=== PATIENT | female | born 1975 | race African-American/Black ===

== ENCOUNTER 2016-12-08 02:35 | Emergency (ER) | payer OTHER ==
[2016-12-08 02:46] VITALS: TEMP 98.2; BMI 23.6
--- NOTE | 2016-12-08 04:50 | PDOC ---
History of Present Illness - General History Source: Patient Exam Limitations: No Limitations - History of Present Illness Initial Comments: 12/08/16 04:53 The patient is a 41 year old female with significant past medical history of asthma and bronchitis who presents to the ED for 6 days of increased dyspnea. Patient reports her symptoms got acutely worse last night. She reports associated coughing, posttussive emesis, headache and some night sweats. She also has complaints of sore throat secondary to her cough. States using her albuterol with no improvement. The patient denies fever, chills, lightheadedness, chest pain, and palpitations. The patient denies abdominal pain, nausea, and diarrhea. Allergies: NKDA Social History: No alcohol, tobacco, or drug use reported. Past Surgical History: Laparoscopic appendectomy, Removal of fibroids and cysts (July 04, 2016) PCP: Dr. Mikaela Morales CORE BLOWER OPERATOR: Dr. Isadora Gallagher <Leonie Olivia - Last Filed: 12/08/16 04:55> - General History Source: Patient <Dashawn Edmonds - Last Filed: 12/08/16 19:42> - General Chief Complaint: Asthma Stated Complaint: ASTHMA/DIFFICULTY BREATHING Time Seen by Provider: 12/08/16 04:50 Past History <Leonie Olivia - Last Filed: 12/08/16 04:55> - Past Medical History Anemia: No Asthma: Yes Cancer: No Cardiac Disorders: No CVA: No COPD: No CHF: No Dementia: No Diabetes: No GI Disorders: No Disorders: No HTN: No Hypercholesterolemia: No Liver Disease: No Seizures: No Thyroid Disease: No - Surgical History Abdominal Surgery: Yes (FIBROIDS REMOVED) Appendectomy: Yes Cholecystectomy: No Orthopedic Surgery: No - Reproductive History (#): 0 Para: 0 - Immunization History Immunization Up to Date: Yes - Psycho/Social/Smoking Cessation Hx Anxiety: No Suicidal Ideation: No Smoking Status: No Smoking History: Never smoked Have you smoked in the past 12 months: No Number of Cigarettes Smoked Daily: 0 Hx Alcohol Use: No Drug/Substance Use Hx: No Substance Use Type: None Hx Substance Use Treatment: No <Dashawn Edmonds - Last Filed: 12/08/16 19:42> - Past Medical History Allergies/Adverse Reactions: Allergies Allergy/AdvReac Type Severity Reaction Status Date / Time castro flavor Allergy Verified 12/08/16 06:44 isabelle flavor Allergy Verified 12/08/16 06:44 Home Medications: Ambulatory Orders Albuterol Sulfate Inhaler - [Ventolin HFA Inhaler -] 1 - 2 inh PO Q4H PRN #1 inh 07/16/14 Ferrous Sulfate [Feosol] 325 mg PO DAILY PRN 01/18/16 Montelukast Na [Singulair -] 10 mg PO HS PRN 01/18/16 Tiotropium Drexel [Spiriva] 1 inh PO DAILY 01/18/16 Ibuprofen [Motrin -] 600 mg PO QID PRN #28 tablet 08/05/16 Dulera 200 Mcg/5 Mcg Inhaler 1 puff IN DAILY 12/08/16 Prednisone [Deltasone -] 40 mg PO DAILY #8 tablet 12/08/16 Review of Systems - Review of Systems Able to Perform ROS?: Yes Comments:: 12/08/16 04:53 CONSTITUTIONAL: +night sweats Absent: fever, no chills, no fatigue EYES: Absent: visual changes ENT: +sore throat Absent: ear pain CARDIOVASCULAR: Absent: chest pain, no palpitations RESPIRATORY: +cough, SOB GI: +posttussive emesis Absent: abdominal pain, no nausea, no constipation, no diarrhea GENITOURINARY: Absent: dysuria, no frequency, no hematuria MUSCULOSKELETAL: Absent: back pain, no arthralgia, no myalgia SKIN: Absent: rash NEURO: +headache <BharrFrancisco albertta - Last Filed: 12/08/16 04:55> *Physical Exam - Vital Signs Last Vital Signs Temp Pulse Resp BP Pulse Ox 98.2 F 117 H 20 137/72 98 12/08/16 02:42 12/08/16 02:42 12/08/16 02:42 12/08/16 02:42 12/08/16 02:42 - Physical Exam Comments: 12/08/16 04:53 GENERAL: Well-appearing, well-nourished. No apparent distress. HEENT: Normocephalic, atraumatic. PERRL, EOM intact. Dry oral mucosa, lips are cracked. Pharynx slightly erythematous. No exudates or edema. Slight trismus. CARDIOVASCULAR: Normal S1, S2. Regular rate and rhythm. PULMONARY: Clear to auscultation bilaterally. ABDOMEN: Soft, non-distended, non-tender. EXTREMITIES: Normal ROM in all four extremities. No gross deformities. SKIN: Warm, dry. No rash NEUROLOGICAL: No focal neurological deficits. <Leonie Olivia - Last Filed: 12/08/16 04:55> - Vital Signs Last Vital Signs Temp Pulse Resp BP Pulse Ox 98.2 F 117 H 20 137/72 98 12/08/16 02:42 12/08/16 02:42 12/08/16 02:42 12/08/16 02:42 12/08/16 02:42 <Dashawn Edmonds - Last Filed: 12/08/16 19:42> ED Treatment Course - LABORATORY CBC & Chemistry Diagram: 12/08/16 06:20 12/08/16 09:00 <Dashawn Edmonds - Last Filed: 12/08/16 19:42> Medical Decision Making - Medical Decision Making 12/08/16 19:39 Dr. Edmonds: The scribe's documentation has been prepared under my direction and personally reviewed by me in its entirery. I confirm that the note above accurately reflects all work, treatment, procedures, and medical decision making performed by me. Pt presents c/o cough. H/o asthma. Pt lungs clear. Labs ordered and pt eventually discharged. <Dashawn Edmonds - Last Filed: 12/08/16 19:42> *DC/Admit/Observation/Transfer - Attestations Scribe Attestion: 12/08/16 04:54 Documentation prepared by Leonie Olivia, acting as medical transport specialist for Dashawn Edmonds MD <Leonie Olivia - Last Filed: 12/08/16 04:55> - Discharge Dispostion Admit: No <Dashawn Edmonds - Last Filed: 12/08/16 19:42> Diagnosis at time of Disposition: URI (upper respiratory infection) Qualifiers: URI type: acute laryngopharyngitis Qualified Code(s): J06.0 - Acute laryngopharyngitis - Discharge Dispostion Disposition: HOME Condition at time of disposition: Improved - Prescriptions Prescriptions: Prednisone [Deltasone -] 40 mg PO DAILY #8 tablet - Referrals Referrals: Amy Morales [Primary Care Provider] - - Patient Instructions Printed Discharge Instructions: DI for Viral Upper Respiratory Infection -- Adult Additional Instructions: Return to the emergency department immediately with ANY new, persistent or worsening symptoms. Your calcium was slightly low - please follow up with your primary [facility] doctor to hav this rechecked. You MUST call and follow up with your doctor tomorrow for further evaluation of your symptoms. Results were discussed with you. Please make sure your doctor reviews the results of your emergency evaluation. If you had any xrays during your visit, it was read preliminarily by myself, a Radiologist will review it and if there are any additional findings we will call you. Print Language: GREEK
[2016-12-08] MEDS ORDERED: KETOROLAC TROMETHAMINE 30 MG/1 ML VIAL ONE (05:27)
[2016-12-08] MEDS: KETOROLAC TROMETHAMINE 30 MG/1 ML VIAL IVPUSH ONE (06:23)
[2016-12-08] MEDS: SODIUM CHLORIDE 1,000 ML IV SCH (06:24)
[2016-12-08 06:28] LABS: BASOPHIL 0.6 % (0-2.0); EOSINOPHIL 0.5 % (0-4.5); MCH 27.9 pg (25.7-33.7); MCHC 33.7 g/dl (32.0-36.0); MEAN CELL VOLUME 82.9 fl (80-96); MEAN PLT VOLUME 9.1 fl (7.5-11.1); PLATELET COUNT 257 K/MM3 (134-434); RDW 19.6 % (11.6-15.6); WHITE BLOOD COUNT 6.9 K/mm3 (4.0-10.0)
[2016-12-08] MEDS: METOCLOPRAMIDE HCL INJECTION 10 MG/2 ML VIAL IVPUSH ONE (09:58)
[2016-12-08] MEDS: AMPICILLIN NA/SULBACTAM NA 1.5 GM in SODIUM CHLORIDE 100 ML IVPB ONE (09:58)
[2016-12-08] MEDS ORDERED: METOCLOPRAMIDE HCL INJECTION 10 MG/2 ML VIAL ONE (09:59)
[2016-12-08 10:01] LABS: ALBUMIN 2.9 g/dl (3.4-5.0); ANION GAP 10 (8-16); BILIRUBIN,TOTAL 0.2 mg/dL (0.2-1.0); CALCIUM 7.6 mg/dL (8.5-10.1); CO2 23 mmol/L (21-32); CREATININE 0.8 mg/dL (0.55-1.02); GLUCOSE,RANDOM 87 mg/dL (74-106); SGOT/AST 17 U/L (15-37); SGPT/ALT 15 U/L (12-78); TOT PROT 5.6 g/dl (6.4-8.2)
[2016-12-08 10:02] LABS: ALK PHOS 99 U/L (45-117)
[2016-12-08] MEDS: ALBUTEROL SO4 2.5/IPRATROPIUM 0.5 INH SOL 3 ML VIAL.NEB. NEB ONE (10:08)
--- NOTE | 2016-12-08 11:37 | PDOC ---
*Physical Exam - Vital Signs Last Vital Signs Temp Pulse Resp BP Pulse Ox 98.2 F 117 H 20 137/72 98 12/08/16 02:42 12/08/16 02:42 12/08/16 02:42 12/08/16 02:42 12/08/16 02:42 ED Treatment Course - LABORATORY CBC & Chemistry Diagram: 12/08/16 06:20 12/08/16 09:00 - ADDITIONAL ORDERS Additional order review: Laboratory Results 12/08/16 12/08/16 12/08/16 09:00 09:00 09:00 Sodium Cancelled 142 Potassium Cancelled 3.5 Chloride Cancelled 109 H Carbon Dioxide Cancelled 23 Anion Gap Cancelled 10 BUN Cancelled 9 D Creatinine Cancelled 0.8 D Creat Clearance w eGFR Cancelled > 60 Random Glucose Cancelled 87 Calcium Cancelled 7.6 L Total Bilirubin Cancelled 0.2 D AST Cancelled 17 ALT Cancelled 15 D Alkaline Phosphatase Cancelled 99 Total Protein Cancelled 5.6 L Albumin Cancelled 2.9 L D Serum , Qual Negative 12/08/16 12/08/16 06:20 06:20 Sodium Cancelled Potassium Cancelled Chloride Cancelled Carbon Dioxide Cancelled Anion Gap Cancelled BUN Cancelled Creatinine Cancelled Creat Clearance w eGFR Random Glucose Cancelled Calcium Cancelled Total Bilirubin AST ALT Alkaline Phosphatase Total Protein Albumin Serum , Qual Cancelled 12/08/16 06:20 RBC 4.84 D MCV 82.9 MCHC 33.7 RDW 19.6 H D MPV 9.1 D Neutrophils % 68.0 Lymphocytes % 23.7 D Monocytes % 7.2 Eosinophils % 0.5 D Basophils % 0.6 - RADIOLOGY Radiology Studies Ordered: Category Date Time Status CHEST X-RAY PORTABLE* [RAD] Stat Radiology 12/08/16 08:53 Completed - Medications Given in the ED: ED Medications Discontinued Medications Generic Name Dose Route Start Last Admin Trade Name Freq PRN Reason Stop Dose Admin Albuterol/Ipratropium 1 amp 12/08/16 07:16 12/08/16 10:08 Duoneb - NEB 12/08/16 07:17 1 amp ONCE ONE Administration Ampicillin Sodium/Sulbactam 100 mls @ 200 mls/hr 12/08/16 04:50 12/08/16 09:58 Sodium 1.5 gm/ Sodium Chloride IVPB 12/08/16 05:19 200 mls/hr ONCE ONE Administration Ketorolac Tromethamine 30 mg 12/08/16 04:50 12/08/16 06:23 Toradol Injection - IVPUSH 12/08/16 04:51 30 mg ONCE ONE Administration Metoclopramide HCl 10 mg 12/08/16 08:53 12/08/16 09:58 Reglan Injection - IVPUSH 12/08/16 08:54 10 mg ONCE ONE Administration Medical Decision Making - Medical Decision Making 12/08/16 11:43 Pt signed out to me from Dr. Saul. 41y F hx of asthma presents with headache, cough/wheezing, sore throat. The patients labs reviewed. cxr negative for acute pathology calcium slightly low - but suspect thi sis due to her low albumin- when corrected is 8.5. makenzie hvae pt fu this up with her PMD. pt feeling improved with supportive care will dc the pt to fu with PMD with supportive care suspect cold/viral syndrome and bronchospasm. will give course of steroids will have pt f uwit hPMD vitals improved with HR of 85 I discussed the physical exam findings, ancillary test results and final diagnoses with the patient. I answered all of the patient's questions. The patient was satisfied with the care received and felt comfortable with the discharge plan and treatment plan. The patient will call their primary care physician within 24 hours to arrange follow-up and will return to the Emergency Department with any new, persistent or worsening symptoms. *DC/Admit/Observation/Transfer Diagnosis at time of Disposition: URI (upper respiratory infection) Qualifiers: URI type: acute laryngopharyngitis Qualified Code(s): J06.0 - Acute laryngopharyngitis - Discharge Dispostion Disposition: HOME Condition at time of disposition: Improved Admit: No - Prescriptions Prescriptions: Prednisone [Deltasone -] 40 mg PO DAILY #8 tablet - Referrals Referrals: Amy Morales [Primary Care Provider] - - Patient Instructions Printed Discharge Instructions: DI for Viral Upper Respiratory Infection -- Adult Additional Instructions: Return to the emergency department immediately with ANY new, persistent or worsening symptoms. Your calcium was slightly low - please follow up with your primary [facility] doctor to hav this rechecked. You MUST call and follow up with your doctor tomorrow for further evaluation of your symptoms. Results were discussed with you. Please make sure your doctor reviews the results of your emergency evaluation. If you had any xrays during your visit, it was read preliminarily by myself, a Radiologist will review it and if there are any additional findings we will call you. Print Language: LATVIAN - Post Discharge Activity
[2016-12-08] MEDS ORDERED: CALCIUM (OYSTER SHELL) 500 MG TABLET (FP) PO SCH (12:00)
[2016-12-08] MEDS: predniSONE 20 MG TABLET (UD) PO ONE (12:12)
[2016-12-08] MEDS ORDERED: predniSONE 20 MG TABLET (UD) ONE (12:13)
[2016-12-08 12:19] VITALS: BP 94/67; PULSE 89
== END 2016-12-08 12:21 | disposition home or self-care (01) ==
LOC: JER 02:35
PROC: 3E0337Z Introduction of Electrolytic and Water Balance Substance into Peripheral Vein, Percutaneous Approach (ICD-10-PCS; principal; 2016-12-08)
DX: J06.0 Acute laryngopharyngitis (principal); J45.909 Unspecified asthma, uncomplicated
CPT/HCPCS: 36415; 71010-TC; 80048; 80053; 84703; 85025; 99282-25

== ENCOUNTER 2021-03-29 15:21 | Emergency (ER) | payer OTHER ==
[2021-03-29 15:47] VITALS: TEMP 97.9; BMI 25.7
[2021-03-29 17:07] LABS: BASO % 0.4 % (0-2.0); HEMATOCRIT 33.1 % (32.4-45.2); LYMPH % 35.9 % (8-40); MCH 26.5 pg (25.7-33.7); MCHC 33.3 g/dl (32.0-36.0); MEAN CELL VOLUME 79.4 fl (80-96); MEAN PLT VOLUME 8.8 fl (7.5-11.1); NEUT % 52.7 % (42.8-82.8); PLATELET COUNT 272 10^3/uL (134-434); RBC 4.17 M/mm3 (3.60-5.2); RDW 16.3 % (11.6-15.6); WHITE BLOOD COUNT 6.2 K/mm3 (4.0-10.0)
[2021-03-29 17:32] LABS: ALBUMIN 3.7 g/dl (3.4-5.0); BLOOD UREA NITROGEN 12.8 mg/dL (7-18)
[2021-03-29 17:35] LABS: CREATININE 1.1 mg/dL (0.55-1.3)
[2021-03-29 17:37] LABS: BILIRUBIN,TOTAL 0.2 mg/dL (0.2-1); TOT PROT 7.1 g/dl (6.4-8.2)
[2021-03-29 17:45] VITALS: BP 122/68; PULSE 92
[2021-03-29 17:57] LABS: EPI CELLS 7 /uL (0-25.1); HCG,QUALITATIVE URINE Negative; HYALINE CASTS 0 /uL (0-3.1); PH,URINE 5.5 (5.0-8.0); URINE APPEARANCE CLOUDY; URINE BACTERIA 8 /uL (0-1359); URINE BILIRUBIN NEGATIVE (NEGATIVE); URINE COLOR ORANGE; URINE GLUCOSE (UA) NEGATIVE (NEGATIVE); URINE KETONE NEGATIVE (NEGATIVE); URINE LEUK ESTERASE TRACE (NEGATIVE); URINE NITRITE NEGATIVE (NEGATIVE); URINE PROTEIN 1+ (NEGATIVE); URINE RBC 8838 /uL (0-23.9); URINE WBC 14 /uL (0-25.8)
== END 2021-03-29 17:45 | disposition home or self-care (01) ==
LOC: JER 15:21
DX: N92.4 Excessive bleeding in the premenopausal period (principal)
CPT/HCPCS: 36415; 80053; 81003; 84703; 85025; 86850; 86900; 86901; 87077; 87086; 99283-25

== ENCOUNTER → 2021-12-08 | Day surgery (SDC) | payer OTHER | END | disposition home or self-care (01) | LOC: JMAMMO-SUR 08:46 | PROVIDERS: ATTEND Student in an Organized Health Care Education/Training Program | PROC: 0H9U3ZX Drainage of Left Breast, Percutaneous Approach, Diagnostic (ICD-10-PCS; principal; 2021-12-08) | DX: D24.2 Benign neoplasm of left breast (principal) | CPT/HCPCS: 19083; 87899; 88305-TC; A4648 ==